=== PATIENT | male | born 1980 | race Asian ===

== ENCOUNTER 2016-08-30 11:20 | Day surgery (SDC) | payer MEDICARE, OTHER ==
[~2016-08-30] VITALS: Ht 167.6 cm; Wt 67.3 kg
[2016-08-30] VITALS (10 sets, daily range): BP systolic 109–145; BP diastolic 75–98; PULSE 72–79; RESP 13–19; O2SAT 98–100
--- NOTE | 2016-08-30 10:47 | PCM.HPANE ---
Patient Data Surgeon Admitting Provider: Attending Provider:Jack Stokes MD Primary Care Physician:Beverley Aceves MD Other Provider:Evgeny Nuñez Anesthesia Reason for Visit Dysfunction Intraperitoneal Dialysis Catheter Ht/WT & BMI Height (Feet): 5 Height (Inches): 6 Weight (Kilograms): 67.3 Body Mass Index 23.00 Allergies Coded Allergies: lisinopril (Verified Adverse Reaction, Severe, cough, 01/11/16) Past Anesthesia History Anesthesia History: Denies:: Abnormal Airway, Anesthesia Reactions, Difficult Intubation, Fam Anesthesia Reaction, Fam Malignant Hypertherm, Malignant Hyperthermia Diabetes History Hx Diabetes?: No MRSA MRSA: No Medications Hypertension Medication: Yes Home Meds Incl Beta Uzair: Yes Reported Medications Cholecalciferol (Vitamin D3) (Vitamin D3)1,000 Unit Tab.chew1,000 Unit PO DAILY 08/29/16 Albuterol Sulfate (Ventolin HFA Inhaler)200 Puff/18 Gm Inhaler1 Puff INH Q4 PRN For Wheezing #1 INHALER Ref 0 08/29/16 Sevelamer Carbonate (Renvela)800 Mg Mcomuj579 Mg PO BID 90 Days 08/29/16 Losartan Potassium 25 Mg Xjtfhv95 Mg PO DAILY 08/29/16 Hydroxychloroquine Sulfate 200 Mg Zcxwxs823 Mg PO DAILY 30 Days Ref 0 08/29/16 Carvedilol 6.25 Mg Tablet6.25 Mg PO BID Ref 0 08/29/16 Discontinued Reported Medications Benzonatate (Tessalon Perle)100 Mg Ksfxypf955 Mg PO TID PRN For Cough 08/29/16 PredniSONE 1 Mg Tab1 Mg PO UD PRN flares Ref 0 08/29/16 Allopurinol 100 Mg Jqiipj55 Mg PO DAILY Ref 0 08/29/16 Vitamin B Complex 1 Each Tablet1 Each PO DAILY 01/04/15 [place]-3 Fatty Acids (Fish Oil)500 Mg Yaxpgyn611 Mg PO DAILY 01/04/15 Cholecalciferol (Vitamin D3) (Vitamin D-3)2,000 Unit Capsule2,000 Unit PO DAILY 01/04/15 Carvedilol 12.5 Mg Vvviyo37.5 Mg PO BID 30 Days Ref 0 01/04/15 Sevelamer Carbonate (Renvela)800 Mg Tablet1,600 Mg PO daily with meals 90 Days 01/04/15 Tadalafil (Cialis)2.5 Mg Tablet2.5 Mg PO PRN PRN erection 30 Days Ref 0 As directed by physician. 01/04/15 Hydroxychloroquine Sulfate 200 Mg Ytvkcr795 Mg PO DAILY #30 TABLET Ref 0 01/04/15 Nifedipine (Nifedipine ER)90 Mg Tablet.er90 Mg PO BID #30 TABLET Ref 0 01/04/15 Discontinued Scripts Levofloxacin 500 Mg Vbpvrs875 Mg PO Q48 10 Days Prov:Eveline Moore MD 01/06/15 History History of ENT Problems?: Yes HEENT History: Denies:: Abnormal Airway Cataracts Difficult Intubation Dysphagia Glaucoma Hearing Problem Sinus Problem TMJ Hx of Heart Problems?: Yes Cardiovascular History: Positive for:: Edema Hypertension Denies:: Cardiac Surgery Chest Pain Congestive Heart Failure Heart Murmur Irregular Heartbeat Pacemaker Valvular Heart Disease (echo 07/2016- ef 50-55%) Hx of Respiratory Problem?: Yes Respiratory History: Positive for:: Pneumonia (couple of times, last was 2014) Denies:: Asthma COPD Chest Surgery Cough Dyspnea Emphysema Hemoptysis Oxygen Administration Tuberculosis Use of C-PAP Machine Use of Inhalers / NEBS Hx Neurologic Problems?: No Neurological History: Denies:: Alzheimer's Disease CVA Dementia Dizziness Headaches Multiple Sclerosis Parkinson's Disease Seizures Hx of GI Problems?: Yes Gastrointestinal History: Positive for:: Gastrointestinal Bleeding (hx of chandler avilez tear) Denies:: Diverticulitis Gall Bladder Disease Gastroesphageal Reflux Heartburn Hepatitis Hiatal Hernia Rectal Bleeding Hx of Problems?: Yes Genitourinary History: Positive for:: HX of Hemodialysis (hemodialysis Mo, Mon , Mon) Denies:: Kidney Stones Urinary Tract Infection HX of Peritoneal Dialysis: Yes (granuloma at PD site current admission problem) Male Hx: Denies:: Prostate Problems Scrotal Mass Testicular Surgery Skin History: Denies:: History Skin Disorders? (granuloma at pd site ) Pressure Ulcers Hx Musculoskeletal Problems?: Yes Musculoskeletal History: Positive for:: Systemic Lupus (lupus nephritis ) Denies:: Back Injury Joint Replacement Musculoskeletal Trauma Hx of Psycho/Social Problems?: No Psycho Social History: Denies:: Anxiety Bipolar Disorder Hx Depression Hx Surgeries?: Yes (lt fistula/arm. ) Hx Any Other Health Problems?: Yes Other History: Denies:: Cancer Endocrine Disease Hospitalization Thyroid Disease History Blood Transfusions: Positive for:: Accept Blood Products? Denies:: Blood Transfuse Reaction Blood Transfusions Hx Diabetes: No Hx Alcohol Use: YesAlcoholic Drinks Per Day: twice monthlyHx Substance Use: No Smoking Status: Former Smoker Have You Smoked inLast 12 mo: No Stop/Bang Treated for Sleep Apnea?: Yes Do You Have a CPAP Machine?: Yes S-Snoring: Do You Snore Loudly: Yes T-Tired: feel tired, fatigued: Yes O-Obsered: Observed not breath: No P-Blood Pressure: treated: Yes B- Body Mass Index > 35 kg/m2: No A- Age over 50: No N- Neck Large Circumference: No G- Gender Male: Yes CELINA Total Score: 4 CELINA Category 4 OutPt Procedure: Yes Risk Assessment Category Category 1A: Patient has history of documented sleep apnea, and HAS NOT received any narcotic, sedative or anesthesia administration during this stay. Category 1B: Patient has history of documented sleep apnea, and HAS received any narcotic , sedative or anesthesia administration during this stay Category 2: Patient has SUSPECTED Obstructive Sleep Apnea, and HAS received any narcotic , sedative or anesthesia administration during this stay. Category 3: Patient has SUSPECTED Obstructive Sleep Apnea and HAS NOT received narcotic, sedative or anesthesia administration during this stay. Category 4: Outpatient in Procedural Areas with known sleep apnea or who screen positive for High Risk via the STOP/BANG questionnaire. Exam Exam General Appearance: Alert, Oriented X3, Cooperative, No Acute Distress HEENT/AIRWAY: MP 2 Lungs: Clear to Auscultation, Normal Air Movement Heart: Exam Unremarkable, Regular Rate/Rhythm, No Murmurs/Rubs/Gallops Plan Impression Patient chart reviewed, patient interviewed and anesthestic plan with risks, benefits, and alternatives discussed, and informed consent obtained. ASA Physical Status: ASA3 Severe Disease Anesthetic Plan: GA Bene/Risks/Altern/Consents: Yes HP Complete Prior to Induction: Yes Gonzales Wallace MD Aug 30, 2016 10:47
[~2016-08-30 11:20] MED LIST: ALBU18HF INH; BENZ-12 PO; CARV6.252 PO; CHOL10008 PO; HYDR200T5 PO; LOSA25TA21 PO; Lactated Ringer's 1,000 ML IV SCH; PRD1T PO; SEVE800T7 PO; ZYL100 PO
[2016-08-30] MEDS ORDERED: fentaNYL-PF 50 mCg/mL 2 mL Inj ONE (11:21)
[2016-08-30] MEDS ORDERED: Propofol 10,000 mCg/mL 20 mL Inj ONE (11:21)
[2016-08-30] MEDS ORDERED: Ketamine 10 mg/mL 20 mL Inj ONE (11:21)
[2016-08-30] MEDS ORDERED: Ondansetron 2 mg/mL 2 mL Inj ONE (11:21)
[2016-08-30] MEDS ORDERED: 0.9% Sodium Chloride 500 ML IV ONE (11:26)
[2016-08-30] MEDS ORDERED: Bupivacaine-MPF 0.5% W/EPI 30 mL Inj INFILTRATE ONE (13:25)
[2016-08-30] MEDS ORDERED: Ondansetron 2 mg/mL 2 mL Inj IVPUSH PRN (13:50)
[2016-08-30] MEDS ORDERED: EPHEDrine Sulfate 50 mg/mL Inj IVPUSH PRN (13:50)
[2016-08-30] MEDS ORDERED: HYDROmorphone 1 mg/mL Inj IVPUSH PRN (13:50)
[2016-08-30] MEDS ORDERED: Phenylephrine 10,000 mCg/mL Inj IVPUSH PRN (13:50)
[2016-08-30] MEDS ORDERED: oxyCODONE-Acetamin 5-325 mg Tablet PO PRN (13:50)
[2016-08-30] MEDS ORDERED: fentaNYL-PF 50 mCg/mL 2 mL Inj IVPUSH PRN (13:50)
[2016-08-30] MEDS ORDERED: Dexamethasone 4 mg/mL Inj IVPUSH PRN (13:50)
[2016-08-30] MEDS ORDERED: MetoCLOpramide 5 mg/mL 2 mL Inj IVPUSH PRN (13:50)
--- NOTE | 2016-08-30 14:11 | OP ---
[address] [address] OPERATIVE REPORT PATIENT: MIKEY BARNHART : 1980 MR#: [id number] ADMIT: 08/30/2016 JOB ID: [id number] DATE OF SURGERY: 08/30/2016 PREOPERATIVE DIAGNOSIS(ES): 1. End-stage renal failure. 2. Inadequate peritoneal dialysis. POSTOPERATIVE DIAGNOSIS(ES): 1. End-stage renal failure. 2. Inadequate peritoneal dialysis. PROCEDURE: Remove peritoneal dialysis catheter. SURGEON: Jack Stokes MD. BAND SALVAGER: Julian Lerma PA-C. INDICATIONS: A 36-year-old man who has been dialyzed via a peritoneal catheter but peritoneal dialysis is no longer functioning adequately. He has been converted to hemodialysis and after discussing options with the patient, it was elected to proceed with removal of his peritoneal dialysis catheter. FINDINGS: The catheter was completely removed. The internal cuff was tightly adherent to the deep rectus fascia but ultimately it was freed and removed intact. He had hypertrophic granulation tissue at the exit site that was excised. DESCRIPTION OF PROCEDURE: At the beginning and end of the operation, a SCOAP checklist was completed. An LMA anesthetic was induced and using ChloraPrep on the skin and Betadine on the device, he was prepped and draped in the usual fashion. His previous transverse incision was infiltrated with 0.5% plain bupivacaine. It was opened. The catheter was identified as it entered the rectus muscle. In order to free up the deep cuff, I had to open the rectus muscle which was done using cautery. I then was able to expose the catheter deep to the cuff, pull the catheter completely out. With the anterior rectus fascia exposed, I placed a 0 Vicryl suture in it. I then completed the dissection of the catheter removing the cuff from the rectus muscle. The external cuff was then freed from the subcutaneous tissue. The catheter was cut and both segments were removed. There was no residual foreign body. The anterior rectus fascia was closed with running 0-Vicryl. Hemostasis was obtained with cautery. Using cautery, the hypertrophic granulation tissue was excised and that was left open. The transverse right upper quadrant incision was closed with running subcuticular 4-0 Vicryl. Steri-Strips and sterile dressings were applied. The final sponge, needle and instrument counts were announced as correct. Estimated blood loss less than 10 cc. There are no apparent complications. He was returned to the recovery room in stable condition. Critical Assistance provided by BLANCA Mohamud
--- NOTE | 2016-08-30 15:20 | PCM.ANEP2 ---
Post Anesthesia Evaluation ASA/CMS Post Anesthesia VS in Patient's Normal Range?: Yes Resp Stable; Airway Patent?: Yes CV Function & Hydration Stable: Yes Mental Status Recovered?: Yes Pain control Satisfactory?: Yes N/V Control Satisfactory?: Yes Gonzales Wallace MD Aug 30, 2016 15:20
--- NOTE | 2016-08-30 15:20 | PCM.ANEP1 ---
Post Anesthesia Phase 1 PACU Phase 1 Assessment Vital Signs Vital Signs Date Time Temp Pulse Resp B/P Pulse Ox O2 Delivery O2 Flow Rate FiO2 08/30/16 14:51 36.7 78 16 145/91 100 Room Air 08/30/16 14:35 74 14 143/96 99 Room Air 08/30/16 14:20 36.7 74 13 139/96 98 Room Air 08/30/16 14:15 75 13 135/95 98 Room Air 08/30/16 14:10 75 15 137/95 100 Room Air 08/30/16 14:05 74 19 136/87 100 Simple Mask 8 08/30/16 14:00 79 16 121/91 100 Simple Mask 8 08/30/16 13:55 36.0 72 16 109/75 100 Simple Mask 8 08/30/16 11:55 36.3 72 18 143/98 100 Room Air Anesthetic Administered: GA Level of Alertness: Sleepy, easy to arouse VARGAS's with Equal Strength: Yes Pain: No Nausea or Vomiting: No Airway Device: LMA Oxygen Delivery: Simple Mask Lungs: Clear to Auscultation, Normal Air Movement Dermatome Level: Full Sensation Gonzales Wallace MD Aug 30, 2016 15:20
[2016-09-29] MEDS ORDERED: TRET15GE2 TP (11:04)
== END 2016-08-30 23:59 | disposition home or self-care (01) ==
LOC: SAS 11:20
PROVIDERS: ATTEND Surgery
DX: N18.6 End stage renal disease (principal); T85.611A Breakdown (mechanical) of intraperitoneal dialysis catheter, initial encounter; I12.0 Hypertensive chronic kidney disease with stage 5 chronic kidney disease or end stage renal disease; M32.9 Systemic lupus erythematosus, unspecified; Z79.82 Long term (current) use of aspirin; Z99.2 Dependence on renal dialysis; Z87.891 Personal history of nicotine dependence
CPT/HCPCS: 36415; 49422; 84132; J2250; J2405; J7030

== ENCOUNTER 2016-09-15 00:27 | Day surgery (SDC) | payer MEDICARE, OTHER ==
[~2016-09-15] VITALS: Ht 170.2 cm; Wt 66.0 kg
[2016-09-15] VITALS (9 sets, daily range): BP systolic 128–146; BP diastolic 83–96; PULSE 71–86; RESP 14–18; O2SAT 98–100
[~2016-09-15 00:27] MED LIST changes: -BENZ-12 PO; -Lactated Ringer's 1,000 ML IV SCH; -PRD1T PO; -ZYL100 PO
[2016-09-15] MEDS ORDERED: 0.9% Sodium Chloride 500 ML ONE (09:00)
[2016-09-15 09:35] LABS: EOSINOPHILS % (AUTO) 13.4 % (0-5); MONOCYTES % (AUTO) 7.8 % (4-12); Mean Corpuscular Hemoglobin 32.3 pg (27.0-35.0); Mean Corpuscular Volume 98.6 fL (81-100); NEUTROPHILS % (AUTO) 60.6 % (40-74); Platelet Count 164 bil/L (150-400)
[2016-09-15 09:50] LABS: INR 0.97 ratio
[2016-09-15] MEDS ORDERED: AMLO-39 PO (09:52)
[2016-09-15] MEDS ORDERED: SEVE800T7 PO (09:53)
[2016-09-15] MEDS ORDERED: CeFAZolin 1 Gm/50 mL D5W Duplex Bag IV ONE (09:57)
--- NOTE | 2016-09-15 11:19 | NUR ---
ZARIA Admit to [facility] bed 4 at 0900. Mother at bedside. Patient denies pain. HL placed and labs obtained. Consent pr MD and witnessed. History and medications reviewed. Pre-procedure teaching done and questions answered.
[2016-09-15] MEDS ORDERED: CeFAZolin Inj 2 GM in IV Premix 1 EACH IV ONE (11:25)
[2016-09-15] MEDS ORDERED: Heparin 5,000 Unit/mL Inj ONE (11:38)
[2016-09-15] MEDS ORDERED: 0.9% Sodium Chloride 1,000 ML ONE (11:38)
[2016-09-15] MEDS ORDERED: Heparin 1,000 Unit/mL 10 mL Inj ONE (11:49)
[2016-09-15] MEDS ORDERED: fentaNYL-PF 50 mCg/mL 2 mL Inj ONE ×2 (11:49→12:20)
--- NOTE | 2016-09-15 14:38 | DRSVH ---
PROCEDURE: ARTERIO VENOUS FISTULOGRAM (PNL) INDICATIONS: ESRD TECHNIQUE: FLUOROSCOPY TIME: 8.1 minutes. Technique: 1. Conscious sedation for 60 minutes. 2. Antegrade access of the venous outflow. 3. Fistulogram performed to the level of the SVC. 4. Sheath removal hemostasis. The indications, alternatives, benefits, risks, and complications of the procedure were explained to the patient.. Informed written consent was obtained and placed in the chart. The patient was salima t to the angiography suite, and conscious sedation was administered intravenously by jail staff, while continuous cardiorespiratory monitoring was performed. Maximum sterile barrier technique was employed per standard protocol, including hand hygiene, cap, ma sk, sterile gown and gloves, and 2% chlorhexidine. One percent lidocaine was used to anesthetize the skin over the area of interest. Using a micropuncture kit, the venous outflow was accessed in an ant egrade fashion. Fistulogram was performed through the micropuncture sheath. An 035 wire was advanced into the venous outflow. The micropuncture sheath was exchanged for a short 6 Sammarinese sheath. A Kumpe catheter and Glidewire were passed into the central portion of the cephalic vein. Fistulogram of the central veins was performed. The wire was then removed, the sheath was removed, and hemostasis was ac hieved. COMPARISON: None. FINDINGS: Initial fistulogram demonstrates nonocclusive, peripheral thrombus within the oval, aneury smal portion of the venous outflow. The central portion of the fistula is patent in this region. Ther e is a large tributary vein branching from the peripheral portion of the venous outflow. The more boris tral portion of the venous outflow is markedly tortuous and dilated. No discrete stenoses are visuali zed. A focal high-grade stenosis is present within the central portion of the cephalic vein. Tortuous , ectatic collaterals are present in this region. A moderate to high-grade stenosis is present within the central portion of the subclavian vein. Tortuous, ectatic collaterals are present in this region . Additionally, there is reflux of contrast within the subclavian vein and the central portion of the axillary vein. IMPRESSION: 1. 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 2. Large tributary branch off the peripheral portion of the venous outflow. If diminished arterial pr essure is of concern, embolization of this vein could be considered. 3. Focal high-grade stenosis within the central portion of the cephalic vein. Given the marked tortuo sity of the peripheral portion of the vein, a balloon could not be advanced centrally. Additionally, a focal high-grade stenosis is present within the subclavian vein. These may be amenable to percutane ous angioplasty via a right femoral venous approach. Alternatively, access through the outflow vein i n a more central location (for example near the head of the humerus) may be a possibility as the outf low vein is large and palpable in this region. The patient will be scheduled for a repeat fistulogram at his earliest convenience. Dictated by: Mary Fortune M.D. on 09/15/2016 at 14:06 Approved by: Mary Fortune M.D. on 09/15/2016 at 14:36
--- NOTE | 2016-09-15 15:43 | NUR ---
ZARIA Patient returned from photographic laboratory technician at 1245, no intervention, purse string in place. Denies pain. Mother not at bedside but will return prior to discharge. Purse string removed at 1400 without bleeding or hematoma. Patient taking PO and ambulatory. Discharge instructions reviewed with patient and mother, written information given, follow up appointment made and questions answered.
[2016-09-29] MEDS ORDERED: TRET15GE2 TP (11:04)
== END 2016-09-15 23:59 | disposition home or self-care (01) ==
LOC: SOUO 00:27
PROVIDERS: ATTEND Radiology Vascular & Interventional Radiology
DX: T82.898A Other specified complication of vascular prosthetic devices, implants and grafts, initial encounter (principal); T82.868A Thrombosis due to vascular prosthetic devices, implants and grafts, initial encounter; I87.1 Compression of vein; I87.8 Other specified disorders of veins; I12.0 Hypertensive chronic kidney disease with stage 5 chronic kidney disease or end stage renal disease; N18.6 End stage renal disease; Z99.2 Dependence on renal dialysis; N25.0 Renal osteodystrophy; M32.9 Systemic lupus erythematosus, unspecified; M32.14 Glomerular disease in systemic lupus erythematosus; Y83.2 Surgical operation with anastomosis, bypass or graft as the cause of abnormal reaction of the patient, or of later complication, without mention of misadventure at the time of the procedure
CPT/HCPCS: 36415; 36901; 80048; 85025; 85610; 99152; 99153; C1769; C1894; J1200; J1644; J2250; J3010; J7030; Q9967

== ENCOUNTER 2017-03-21 00:30 | Inpatient (IN) | payer MEDICAID, MEDICARE ==
[~2017-03-21] VITALS: Ht 170.2 cm; Wt 69.0 kg
[2017-03-21] VITALS (10 sets, daily range): BP systolic 123–198; BP diastolic 72–125; PULSE 61–93; RESP 18; O2SAT 97–98
[~2017-03-21 00:30] MED LIST changes: +ACET-2766 PO; -ALBU18HF INH; +CALC500T9 PO; -CHOL10008 PO; +CINA90TA PO; +DEXT1DRO8 BOTH_EYES; +DOCU-41 PO; +LIDO5CRE17 TOPICAL; +OXYC-474 PO; +SENN-133 PO; +TRET15GE2 TP
[2017-03-21 06:48] LABS: BASOPHILS % (AUTO) 0.4 % (0-3); EOSINOPHILS % (AUTO) 2.8 % (0-5); MONOCYTES % (AUTO) 8.2 % (4-12); Mean Corpuscular Hemoglobin 33.3 pg (27.0-35.0); Mean Corpuscular Volume 99.7 fL (81-100); NEUTROPHILS % (AUTO) 71.3 % (40-74); Platelet Count 141 bil/L (150-400)
[2017-03-21 07:04] LABS: INR 0.97 ratio
[2017-03-21] MEDS ORDERED: Heparin 1,000 Units/500 mL NS Premix IV ONE (08:27)
[2017-03-21] MEDS ORDERED: Heparin 10,000 Unit/1,000 mL NS Premix IV ONE ×2 (08:28→11:14)
[2017-03-21] MEDS ORDERED: Alteplase (Cathflo) 1 mg/mL 2 mL Inj IV SCH (08:30)
[2017-03-21] MEDS ORDERED: Heparin 1,000 Unit/mL 10 mL Inj ONE ×2 (08:41→11:38)
[2017-03-21] MEDS ORDERED: fentaNYL-PF 50 mCg/mL 2 mL Inj ONE ×3 (08:42→10:43)
[2017-03-21] MEDS ORDERED: Water for Injection 50 ML IV ONE (09:06)
[2017-03-21] MEDS ORDERED: Atropine 1 mg/10 mL (Code) Syringe ONE (09:45)
[2017-03-21] MEDS ORDERED: MeTOProlol 1 mg/mL 5 mL Inj ONE (10:47)
[2017-03-21] MEDS ORDERED: hydrALAZINE 20 mg/mL Inj ONE (11:10)
--- NOTE | 2017-03-21 13:26 | DRSVH ---
PROCEDURE: CV DECLOTTING MECHANICAL (PNL) INDICATIONS: THROMBUS COMPARISON: None. Fluoroscopy time: 35.8 minutes. Technique: 1. Antegrade access of the venous outflow left upper extremity fistula. 2. Antegrade fistulogram. 3. Retrograde access of the fistula. 4. Mechanical and pharmacologic thrombolysis. 5. Completion fistulogram. 6. Left internal jugular vein hemodialysis catheter placement. The indications, alternatives, benefits, risks, and complications of the procedure were explained to the patient.. Informed written consent was obtained and placed in the chart. The patient was salima t to the angiography suite, and conscious sedation was administered intravenously by [facility] staff, while continuous cardiorespiratory monitoring was performed. Maximum sterile barrier technique was employed per standard protocol, including hand hygiene, cap, ma sk, sterile gown and gloves, and 2% chlorhexidine. One percent lidocaine was used to anesthetize the skin over the area of interest. Using a micropuncture kit, the venous outflow the left upper extremit y fistula was accessed in an antegrade fashion. The micropuncture sheath was exchanged for a short 6 Malaysian sheath. A Kumpe catheter and Glidewire were advanced centrally within the venous outflow. Next , the venous outflow was accessed in a retrograde fashion more centrally with a micropuncture kit. Mi cropuncture sheath was exchanged for a short 6 Malaysian sheath. A multiside hole infusion catheter was placed within the peripheral sheath, and 3 cc TPA was administ ered in 10 cc saline in a pulse spray fashion. Next, mechanical thrombolysis using an AngioJet cathet er was performed. The multiside hole infusion catheter was then placed within the more central sheath and 3 cc TPA was administered in 10 cc saline in a pulse spray fashion. Mechanical thrombolysis usin g the AngioJet catheter was then performed through the more central sheath. Fistulogram was performed at the arteriovenous anastomosis. Balloon angioplasty was performed throughout the length of the fistula using a 10 mm x 40 mm high-pre ssure balloon. Balloon angioplasty was also performed within the central cephalic vein using a 6 mm x 40 mm high-pressure balloon. Completion fistulogram was performed. Although there was prompt flow of contrast at the termination of the study, and a palpable thrill was noted, after the sheaths were removed, there was a decreased thrill noted. Ultrasound demonstrated t hrombosis had recurred within the peripheral portion of the venous outflow. Next, the left neck was prepped and draped in the usual sterile fashion. 1% lidocaine was used to ane sthetize the skin over the internal jugular vein. Under ultrasound guidance, the left internal jugula r vein was accessed with a micropuncture needle. An 035 wire was advanced with the tip in the IVC. Th e venotomy was serially dilated, and a dual-lumen temporary hemodialysis catheter was advanced under fluoroscopy with the tip in the right atrium. This was secured to skin with suture. FINDINGS: Initial fistulogram demonstrates occlusive thrombus within the peripheral half of the veno us outflow of the left upper extremity fistula. The more central portions of the fistula demonstrates nonocclusive thrombus. There is a high-grade stenosis or occlusion of the central portion of the cep halic vein. After thrombolysis and angioplasty, there is prompt flow of contrast throughout the fistu la to the level of the cephalic vein. Of note, the brachiocephalic vein and SVC were not well charact erized on this study. IMPRESSION: 1. Status post extensive thrombolysis of the venous outflow the left upper extremity fistula. Althoug h there was prompt flow of contrast and a palpable thrill at the end of the study, after the the freitas ths were removed, the thrill was no longer present, and ultrasound demonstrated reocclusion of the pe ripheral portion of the venous outflow. 2. Status post placement of a left temporary hemodialysis catheter for emergent dialysis. Dictated by: Mary Fortune M.D. on 03/21/2017 at 13:16 Approved by: Mary Fortune M.D. on 03/21/2017 at 13:24
[2017-03-21] MEDS ORDERED: Ondansetron 2 mg/mL 2 mL Inj IVPUSH PRN (13:40)
--- NOTE | 2017-03-21 14:49 | NUR ---
Fistulogram/ZARIA Pt tolerated fistulogram procedure well, however, the fistula was still not appropriate for use so he was given a temporary dialysis catheter. admitting physician was notified by Dr. Fortune that the patient would need to be admitted for obs and dialysis. Pt delivered to [facility] at 1330 for dialysis. Chivo Tineo RN went to [place] purse string device from holding the fistula incision shut at around 1450. Report given to Augusto CONRAD on [facility].
--- NOTE | 2017-03-21 16:49 | PCM.HPMED ---
Subjective Date of Service Mar 21, 2017 Primary Provider: Admitting Physician: Primary Care Physician: Beverley Aceves MD Attending Physician: Sheri Chirinos MD Chief Complaint: Failure of the declotting of AVF History of Present Illness: 34 years old male patient with past medical history of SLE,ESRD from lupus nephritis, HTN presented for elective procedure to declot thrombus of AVF. procedure was tried by , but unable to declot, recommended surgical eval and admission. Patient was inserted temporary LIJ hemodialysis catheter in the mean time. pt was getting dialysis, denied any other complaints. As per , who consulted vasc surgeon at [facility], who recommended second attempt of declotting. Therefore procedure was scheduled again on 9am on this . ROS: Denies fever, chills, chest pain, difficulty breathing, cough, abdominal pain nausea vomiting diarrhea, sick contacts, travel, Review of Systems: Pertinent positives as noted in history of present illness. All other systems were reviewed and are negative Allergies Coded Allergies: lisinopril (Verified Adverse Reaction, Severe, cough, 01/11/16) Home Medications HCQ 200mg daily coreg 12.5 bid ca carbonate 1g tid [id number] tid PMH As described above in history of present illness Surgical History n/a Family History no hx of CAD Social History Hx Alcohol Use: Yes (socially) Hx Substance Use: No Hx Tobacco Use: No Smoking Status: Former Smoker Exam Vital Signs Vital Sign - Last Date Time Temp Pulse Resp B/P Pulse Ox O2 Delivery O2 Flow Rate FiO2 03/21/17 13:00 89 03/21/17 13:00 18 196/119 03/21/17 06:38 36.8 98 Room Air Exam NAD, comfortably laying down on the bed no JVD, MMM, no LAD RRR, nl s1, s2 no mrg CTAB, no w,c S,ND,NT,normoactive BS+ warm, no edema, pulses 2/2 Lab and Diagnostics Result Diagram: 03/21/1761903/21/17619 Assessment & Plan Acute, active known clotted AVF, failed mechanical decloting by IR, -start heparin gtt today per discussion with , , then reattempt to declot on , scheduled at 9am by . ESRD on HD, dialysis as scheduled per renal service, Chronic, stable SLE, presumed stable, resume HCQ daily HTN, hypertensive today, resume dialysis, anti-hypertensives coreg 16.2 bid Dispo: Patient is admitted under observation status with expectation that she will be discharged within 24-48 hours, diet:renal dvt ppx:SCD Full code Time spent 65 minutes Michaela Whatley MD Mar 21, 2017 14:04
[2017-03-21] MEDS ORDERED: Heparin 5,000 Unit/mL Inj IVPUSH PRN (16:50)
[2017-03-21] MEDS ORDERED: Heparin 25K Unit/500mL 0.45 NS 25,000 UNIT in IV Premix 1 EACH IV SCH (16:50)
[2017-03-21] MEDS ORDERED: Labetalol 5 mg/mL 20 mL Inj IVPUSH PRN (17:05)
--- NOTE | 2017-03-21 17:36 | CONS ---
[address] [address] CONSULTATION REPORT PATIENT: MIKEY BARNHART : 1980 MR#: [id number] ADMIT: 03/21/2017 JOB ID: [id number] DATE OF SERVICE: 03/21/2017 REQUESTING PHYSICIAN: Dr. Whatley. REASON FOR CONSULTATION: Management of end-stage renal disease. CHIEF COMPLAINT: Clotted AV fistula. PRESENT ILLNESS: A 36-year-old male with significant past medical history of SLE, end-stage renal disease on hemodialysis every Monday, Monday, and Monday, history of renal cell carcinoma status post laparoscopic hand-assisted bilateral nephrectomy and lymph node resection in December 2016 who presented to the hospital for elective declotting AV fistula. He is a patient of Dr. Ochoa. He initially started on peritoneal dialysis in August 2012, later on switched to hemodialysis recently in August 2016. He is dialyzed at [facility] in [place]. His target weight is 65 kg. His last dialysis was on Monday. He came in today for declotting of the AV fistula. The procedure was performed by Dr. Fortune. He underwent extensive thrombolysis of the venous outflow of the left upper extremity fistula. After the sheath was removed, the access clotted again. He had left IJ temporary dialysis catheter placed for emergent dialysis. His initial blood work showed a potassium of 6.1. Renal was consulted to arrange for hemodialysis. PAST MEDICAL HISTORY: 1. 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 2. History of SLE. 3. Hypertension. 4. Anemia of chronic kidney disease. 5. Renal osteodystrophy. 6. Renal cell carcinoma status post bilateral nephrectomy in December 2016. 7. Status post left AV fistula creation. FAMILY HISTORY: Noncontributory. SOCIAL HISTORY: He is a former smoker. He drinks socially. ALLERGIES: LISINOPRIL. MEDICATIONS: Calcium carbonate, carvedilol, Sensipar, Renvela and Plaquenil. REVIEW OF SYSTEMS: Fourteen point review of system was performed. PHYSICAL EXAMINATION: Vitals: Temperature 36.8, pulse 83, respiratory rate 18, blood pressure 185/121. General appearance: Awake, alert, oriented x3. Being dialyzed in no acute distress. HEENT: No pallor, no jaundice. No JVD. No lymphadenopathy. No thyroid enlargement. Heart: Regular rate, rhythm. Normal S1, S2. No murmurs, rubs, or gallops. Lungs: Clear to auscultation bilaterally. No wheezing. No rhonchi. Abdomen: Soft, active bowel sounds. Nontender. Nondistended. No hepatosplenomegaly. Extremities: No lower extremity edema. Positive left upper extremity swelling. AV fistula with no thrill and bruit. LABORATORY: Sodium 135, potassium 6.1, chloride 91, bicarb 18, BUN 143, creatinine 18.7, hemoglobin 10.0, WBC 5.3, platelet count 141. ASSESSMENT: 1. Clotted arteriovenous fistula status post fistulogram and extensive thrombolysis of the venous outflow of the fistula but then re-clotted again. 2. Hyperkalemia. 3. Uremia. 4. Renal osteodystrophy. 5. Uncontrolled hypertension. 6. Anemia of chronic kidney disease. Patient will receive hemodialysis today and tomorrow, using 2K bath. I will increase his carvedilol to 25 mg twice a day and will add Norvasc 10 mg. We have discussed with Dr. Cornejo and Dr. Fortune. The plan is to start heparinization. Subsequently, Dr. Fortune will attempt another declotting procedure on . Thank you for allowing me to participate in the care of your patient. We will monitor along with you. IRENE
--- NOTE | 2017-03-21 20:59 | CONS ---
[address] [address] CONSULTATION REPORT PATIENT: MIKEY BARNHART : 1980 MR#: [id number] ADMIT: 03/21/2017 JOB ID: [id number] DATE OF SERVICE: 03/21/2017 Dr. Whatley has asked me to be involved in this 36-year-old man with dialysis access problem. The patient has a longstanding radiocephalic fistula for hemodialysis that has recently required a thrombectomy with balloon dilation. Thrombectomy was attempted today and was initially successful but reclotted after a long procedure. The patient is admitted for dialysis after placement of a temporary dialysis access catheter, and General Surgery has been asked to be involved in the dialysis access plan. Over 45 minutes was spent in consultation with Dr. Fortune, Dr. Bassett, and Dr. Whatley, as well as reviewing x-ray films and discussion with Dr. Stokes. This appears to be a complex AV fistula that would require a complex surgical revision if needed. Dr. Stokes is not available and because of this, some consideration was given for transfer to Vascular Surgery service at [facility]. Dr. Fortune has had a discussion with that service and at this point, what seems to be a reasonable plan is to admit the patient, heparinize him for the time being to prevent progressive thrombosis of his graft and surrounding vessels. Dr. Fortune will attempt a mechanical thrombectomy as well as possible balloon angioplasty on and if this fails the patient will be seen by Vascular Surgery at [facility].
--- NOTE | 2017-03-21 21:18 | NUR ---
Hemodialysis note: Received pt after fistulagram and attempt to declot fistula. Dialyzed via L temporary non-tunneled cath. 4hr tx, 3700ML removed, 67.9L processed. Arterial alarms during first few hrs of tx when pt moves, BFR at 300. Ports reversed and BFR increased to 400. Hypertensive during tx. pt says often high, prob d/t too much fluid, hasn't HD since Mon. Will HD again tomorrow
[2017-03-22 00:25] VITALS: BP 143/85; PULSE 91; RESP 17; O2SAT 98
[2017-03-22 05:58] VITALS: BP 139/86; PULSE 93; RESP 17; O2SAT 98
[2017-03-22 08:08] LABS: BASOPHILS % (AUTO) 0 % (0-3); EOSINOPHILS % (AUTO) 1.9 % (0-5); Mean Corpuscular Hemoglobin 33.8 pg (27.0-35.0); Mean Corpuscular Volume 99.6 fL (81-100); NEUTROPHILS % (AUTO) 76.4 % (40-74); Platelet Count 108 bil/L (150-400)
--- NOTE | 2017-03-22 08:12 | NUR ---
Dialysis PT moved in bed from 246-1 to Renal Dialysis at 0810. HTN medication held, to be given upon return. PT ambulatory
[2017-03-22 08:22] VITALS: BP 140/87; PULSE 91
[2017-03-22 08:30] VITALS: RESP 18
[2017-03-22] MEDS ORDERED: Hydroxychloroqine 200 mg Tablet PO SCH (08:30)
[2017-03-22 08:36] LABS: Phosphorus 8.8 mg/dL (2.5-4.9)
[2017-03-22 10:37] VITALS: PULSE 101
--- NOTE | 2017-03-22 11:45 | PCM.DIMED ---
Discharge Instructions Date of Service Mar 22, 2017 Dates of Hospitalization 03/21/17 Discharge Diagnosis Discharge Diagnosis known clotted AVF, failed mechanical decloting by IR, ESRD on HD, SLE, presumed stable, HTN, Diet Discharge Diet: Renal Diet Activity Discharge Activity: Limited until seen by PCP Call your provider Call your provider for: Fever or Chills, Shortness of breath, Bleeding, Chest pain, Vomitting, Excessive diarrhea, Weakness (unilateral) Patient Instructions Patient Instructions You were hospitalized due to left AV fistula clot. IR thrombectomy tried on but failed . you have been maintained on heparin drip for planned repeat declotting tomorrow but transferred to [facility] for vascular surgeon eval . Follow-up Provider: Sheri Chirinos MD Follow-up with PCP in: 1 week Prasad Cross MD Mar 22, 2017 11:45
--- NOTE | 2017-03-22 12:34 | PCM.PNNEPH ---
Subjective Date of Service Mar 22, 2017 Subjective HD performed last night. Poor blood flow ~ 300 ml/min, port switched. Patient is seen during HD. K was normalized. Exam Vital Signs Vital Sign - Last Date Time Temp Pulse Resp B/P Pulse Ox O2 Delivery O2 Flow Rate FiO2 03/22/17 10:37 101 03/22/17 08:30 18 Room Air 03/22/17 05:58 37.2 139/86 98 Intake and Output 03/21/17 03/21/17 03/22/17 Cumulative From/Thru 15:00 23:00 07:00 03/21/17 06:38 - 03/22/17 06:29 Intake Total 376 ml 376 ml Output Total 3700 ml 3700 ml Balance -3700 ml 376 ml -3324 ml Intake Oral 100 ml 100 ml IV Total 276 ml 276 ml Output Ultrafiltrate 3700 ml 3700 ml Exam General appearance: Awake, alert, oriented x3. Being dialyzed in no acute distress. HEENT: No pallor, no jaundice. No JVD. No lymphadenopathy. No thyroid enlargement. Heart: Regular rate, rhythm. Normal S1, S2. No murmurs, rubs, or gallops. Lungs: Clear to auscultation bilaterally. No wheezing. No rhonchi. Abdomen: Soft, active bowel sounds. Nontender. Nondistended. No hepatosplenomegaly. Extremities: No lower extremity edema. Positive left upper extremity swelling. AV fistula with no thrill and bruit. Left IJ HD catheter in place. Lab and Diagnostics Result Diagram: 03/22/17 0755 03/22/17 0755 Plan Impression 1. Clotted arteriovenous fistula status post fistulogram and extensive thrombolysis of the venous outflow of the fistula but then re-clotted again. 2. Hyperkalemia, resolved. 3. Uremia, improving. 4. Renal osteodystrophy. 5. Uncontrolled hypertension. 6. Anemia of chronic kidney disease. Plan: Transfer to [facility] for vascular surgery evaluation. DW with his primary breakfast cook. Miguelina Bassett MD Mar 22, 2017 12:34
--- NOTE | 2017-03-22 12:53 | NUR ---
Case Management: MARTHA presented with explanation - signed by patient and placed in chart. Hannah Ventura RN.
--- NOTE | 2017-03-22 12:56 | NUR ---
Dialysis note: 4 hr tx. Net UF 2500 Left IJ cath, QB 300 Dressg CDI Pt stable throughout tx Dwelled with Heparin 1000 and limbs secured with caps Pt returned to room stable and will be discharged to [facility] Report given to primary RN, Ab Please see DTR for complete record of VS
--- NOTE | 2017-03-22 13:25 | NUR ---
Discharge Patient was transferred to [facility] for fistula insertion. Report given to Cammy CONRAD, receiving nurse. Patient will be in room 512 Bed 2. ALS staff to transport, report given to Andrea CONRAD. With ongoing Heparin drip, patent. Patient denies any discomfort on discharge.
[2017-03-22 13:28] VITALS: RESP 20
--- NOTE | 2017-03-22 20:37 | PCM.DC.MED ---
Discharge Summary Date of Service Mar 22, 2017 Dates of Hospitalization Date of Hospital Admission Mar 21, 2017 at 14:46 Date of Discharge: Mar 22, 2017 Providers: Admitting Physician: Prasad Cross MD Primary Care Physician: Beverley Aceves MD Attending Physician: Prasad Cross MD Diagnosis at Time of Discharge Diagnosis at Time of Discharge known clotted AVF, failed mechanical decloting by IR, ESRD on HD, SLE, presumed stable, HTN, Consultations surgery Dr Moulton nephrology Dr Mian Banres Procedures Invasive Procedures PROCEDURE: CV DECLOTTING MECHANICAL (PNL) INDICATIONS: THROMBUS COMPARISON: None. Fluoroscopy time: 35.8 minutes. Technique: 1. Antegrade access of the venous outflow left upper extremity fistula. 2. Antegrade fistulogram. 3. Retrograde access of the fistula. 4. Mechanical and pharmacologic thrombolysis. 5. Completion fistulogram. 6. Left internal jugular vein hemodialysis catheter placement. The indications, alternatives, benefits, risks, and complications of the procedure were explained to the patient.. Informed written consent was obtained and placed in the chart. The patient was brought to the angiography suite, and conscious sedation was administered intravenously by half-way staff, while continuous cardiorespiratory monitoring was performed. Maximum sterile barrier technique was employed per standard protocol, including hand hygiene, cap, mask, sterile gown and gloves, and 2% chlorhexidine. One percent lidocaine was used to anesthetize the skin over the area of interest. Using a micropuncture kit, the venous outflow the left upper extremity fistula was accessed in an antegrade fashion. The micropuncture sheath was exchanged for a short 6 Azeri sheath. A Kumpe catheter and Glidewire were advanced centrally within the venous outflow. Next, the venous outflow was accessed in a retrograde fashion more centrally with a micropuncture kit. Micropuncture sheath was exchanged for a short 6 Azeri sheath. A multiside hole infusion catheter was placed within the peripheral sheath, and 3 cc TPA was administered in 10 cc saline in a pulse spray fashion. Next, mechanical thrombolysis using an AngioJet catheter was performed. The multiside hole infusion catheter was then placed within the more central sheath and 3 cc TPA was administered in 10 cc saline in a pulse spray fashion. Mechanical thrombolysis using the AngioJet catheter was then performed through the more central sheath. Fistulogram was performed at the arteriovenous anastomosis. Balloon angioplasty was performed throughout the length of the fistula using a 10 mm x 40 mm high-pressure balloon. Balloon angioplasty was also performed within the central cephalic vein using a 6 mm x 40 mm high-pressure balloon. Completion fistulogram was performed. Although there was prompt flow of contrast at the termination of the study, and a palpable thrill was noted, after the sheaths were removed, there was a decreased thrill noted. Ultrasound demonstrated thrombosis had recurred within the peripheral portion of the venous outflow. Next, the left neck was prepped and draped in the usual sterile fashion. 1% lidocaine was used to anesthetize the skin over the internal jugular vein. Under ultrasound guidance, the left internal jugular vein was accessed with a micropuncture needle. An 035 wire was advanced with the tip in the IVC. The venotomy was serially dilated, and a dual-lumen temporary hemodialysis catheter was advanced under fluoroscopy with the tip in the right atrium. This was secured to skin with suture. FINDINGS: Initial fistulogram demonstrates occlusive thrombus within the peripheral half of the venous outflow of the left upper extremity fistula. The more central portions of the fistula demonstrates nonocclusive thrombus. There is a high-grade stenosis or occlusion of the central portion of the cephalic vein. After thrombolysis and angioplasty, there is prompt flow of contrast throughout the fistula to the level of the cephalic vein. Of note, the brachiocephalic vein and SVC were not well characterized on this study. IMPRESSION: 1. Status post extensive thrombolysis of the venous outflow the left upper extremity fistula. Although there was prompt flow of contrast and a palpable thrill at the end of the study, after the the sheaths were removed, the thrill was no longer present, and ultrasound demonstrated reocclusion of the peripheral portion of the venous outflow. 2. Status post placement of a left temporary hemodialysis catheter for emergent dialysis. Dictated by: Mary Fortune M.D. on 03/21/2017 at 13:16 Brief History per HPI 34 years old male patient with past medical history of SLE,ESRD from lupus nephritis, HTN presented for elective procedure to declot thrombus of AVF. procedure was tried by , but unable to declot, recommended surgical eval and admission. Patient was inserted temporary LIJ hemodialysis catheter in the mean time. pt was getting dialysis, denied any other complaints. As per , who consulted vasc surgeon at [facility], who recommended second attempt of declotting. Therefore procedure was scheduled again on 9am on this . ROS: Denies fever, chills, chest pain, difficulty breathing, cough, abdominal pain nausea vomiting diarrhea, sick contacts, travel, Hospital Course Acute, active # known clotted AVF, failed mechanical decloting by IR, -started heparin gtt per discussion with , , then reattempt to declot on , patient transferred to [facility] for vascular surgical eval per his primary lard renderer Dr Taran cuevas,accepting physician Dr Chirinos # ESRD on HD, dialysis as scheduled per renal service, HD today Chronic, stable #SLE, presumed stable, resume HCQ daily #HTN, hypertensive today, resume dialysis, anti-hypertensives coreg 16.2 bid Dispo: transferred to [facility] Exam Vital Signs (Last) Date Time Temp Pulse Resp B/P Pulse Ox O2 Delivery O2 Flow Rate FiO2 03/22/17 13:28 20 Room Air 03/22/17 10:37 101 03/22/17 05:58 37.2 139/86 98 Exam NAD, comfortably laying down on the bed no JVD, MMM, no LAD RRR, nl s1, s2 no mrg CTAB, no w,c S,ND,NT,normoactive BS+ warm, no edema, pulses 2/2 RUE swollen ,fistula in place but swollen Test 03/21/17 06:20 03/22/17 07:55 Prothrombin Time 10.4sec (8.1-12.5) Prothromb Time International Ratio 0.97ratio Estimat Glomerular Filtration Rate 3mL/min (>59) White Blood Count 5.7th/mm3 (3.8-10.1) Red Blood Count 2.66mil/mm3 (4.40-5.80) Hemoglobin 9.0g/dL (13.8-17.2) Hematocrit 26.5% (41.0-50.0) Mean Corpuscular Volume 99.6fL (81-100) Mean Corpuscular Hemoglobin 33.8pg (27.0-35.0) Mean Corpuscular Hemoglobin Concent 34.0% (32.0-37.0) Red Cell Distribution Width 13.1% (12.3-15.4) Platelet Count 108bil/L (150-400) Neutrophils (%) (Auto) 76.4% (40-74) Lymphocytes (%) (Auto) 12.7% (14-46) Monocytes (%) (Auto) 9.0% (4-12) Eosinophils (%) (Auto) 1.9% (0-5) Basophils (%) (Auto) 0% (0-3) Activated Partial Thromboplast Time 94.5sec (22.8-33.0) Sodium Level 133mEq/L (134-144) Potassium Level 4.6mEq/L (3.5-5.2) Chloride Level 90mEq/L (97-108) Carbon Dioxide Level 23mmol/L (18-29) Blood Urea Nitrogen 75mg/dL (6-20) Creatinine 13.69mg/dL (0.76-1.27) Glucose Level 188mg/dL (60-99) Calcium Level 8.9mg/dL (8.5-10.1) Phosphorus Level 8.8mg/dL (2.5-4.9) Albumin 4.2g/dL (3.4-5.0) Discharge Medications Discharge Medications Carvedilol (Carvedilol) 6.25 Mg Tablet 12.5 MG PO BID (Reported) Cinacalcet HCl (Sensipar) 90 Mg Tablet 90 MG PO DAILY (Reported) Hydroxychloroquine Sulfate (Hydroxychloroquine Sulfate) 200 Mg Tablet 200 MG PO DAILY (Reported) Sevelamer Carbonate (Renvela) 800 Mg Tablet 1,600 MG PO TID (Reported) Renvela 800mg PO 2-3 tablets with every meal As needed Calcium Carbonate (Tums) 500 Mg Tab.chew 1,000 MG PO TIDWM PRN PRN For Indigestion (Reported) Dialysis patient Followup Plan Disposition: [facility] Discharge Diet: Renal Diet Discharge Activity: Limited until seen by PCP Patient Instructions You were hospitalized due to left AV fistula clot. IR thrombectomy tried on but failed . you have been maintained on heparin drip for planned repeat declotting tomorrow but transferred to [facility] for vascular surgeon eval . Follow-up Provider: Sheir Chirinos MD Follow-up with PCP in: 1 week Time spent 35 minutes coordinating transfer copies to: Sheri Chirinos MD, Melaku MD Mar 22, 2017 20:37
== END 2017-03-22 13:22 | disposition short-term general hospital (02) | DRG 252 ==
LOC: SOUO 00:30 → MOC 14:46 → SOUO 14:46 → MOC 14:46
PROVIDERS: ADMIT Internal Medicine; ATTEND Internal Medicine
PROC: 05CF3ZZ Extirpation of Matter from Left Cephalic Vein, Percutaneous Approach (ICD-10-PCS; principal; 2017-03-21)
PROC: B51W1ZZ Fluoroscopy of Dialysis Shunt/Fistula using Low Osmolar Contrast (ICD-10-PCS; 2017-03-21)
PROC: 3E04317 Introduction of Other Thrombolytic into Central Vein, Percutaneous Approach (ICD-10-PCS; 2017-03-21)
PROC: 02HV33Z Insertion of Infusion Device into Superior Vena Cava, Percutaneous Approach (ICD-10-PCS; 2017-03-21)
PROC: B5181ZA Fluoroscopy of Superior Vena Cava using Low Osmolar Contrast, Guidance (ICD-10-PCS; 2017-03-21)
PROC: 5A1D60Z (ICD-10-PCS; 2017-03-21)
DX: T82.868A Thrombosis due to vascular prosthetic devices, implants and grafts, initial encounter (principal); N18.6 End stage renal disease; I12.0 Hypertensive chronic kidney disease with stage 5 chronic kidney disease or end stage renal disease; M32.14 Glomerular disease in systemic lupus erythematosus; D63.1 Anemia in chronic kidney disease; E87.5 Hyperkalemia; Y84.1 Kidney dialysis as the cause of abnormal reaction of the patient, or of later complication, without mention of misadventure at the time of the procedure; Z99.2 Dependence on renal dialysis; Z87.891 Personal history of nicotine dependence